=== PATIENT | female | born 1975 | race Caucasian/White ===

== ENCOUNTER 2018-10-22 01:40 | Emergency (ER) | payer OTHER ==
[~2018-10-22 01:40] MED LIST: CIP500 PO; CIPR-344 PO; ESCI20TA38 PO; ESCI5TAB10 PO; EST625 PO; GOLYTE PO; HYDR-317 PO; HYOS0.1224 SL; LEVO500T PO; LOR5/325 PO; NO RTN MEDS; OXYB10TA16 PO; PER PO; PHEN95TA44 PO; PRO25 PO; SULF-198 PO; [UNRECOGNIZED DRUG - OTHER]
--- NOTE | 2018-10-22 01:43 | ER Report ---
History and Physical Time Seen By MD: 01:42 HPI/ROS CHIEF COMPLAINT: "Urinary tract infection" HISTORY OF PRESENT ILLNESS: Patient is a 43-year-old female with past medical history for anxiety and history of urinary tract infection in the past. Presents with a few hours worth of increased urinary frequency, burning with urination suprapubic abdominal pain. She denies fevers or chills she denies nausea vomiting or diarrhea. She denies any vaginal discharge. She denies . Patient denies any flank pain. Allergies: Coded Allergies: metoclopramide (Verified Allergy, Severe, NERVOUSNESS, 10/22/18) levofloxacin (Verified Allergy, Unknown, 10/22/18) 'FELT CRAZY' sulfamethoxazole (Verified Allergy, Unknown, 10/22/18) 'FELT CRAZY' trimethoprim (Verified Allergy, Unknown, 10/22/18) 'FELT CRAZY' Home Meds Active Scripts Phenazopyridine Hcl (PHENAZOPYRIDINE HCL) 200 Mg Tablet, 200 MG PO TID, #6 TAB 0 Refills Prov:YAMEL BARRON MD 10/22/18 Cephalexin (KEFLEX) 500 Mg Capsule, 500 MG PO Q6H, #20 CAP 0 Refills TAKE ONE CAPSULE BY MOUTH EVERY SIX HOURS Prov:YAMEL BARRON MD 10/22/18 Reported Medications Escitalopram Oxalate (LEXAPRO) 20 Mg Tablet, 20 MG PO QDAY, TAB 09/21/17 Past Medical/Surgical History History of anxiety, history of UTIs. Hx Smoking: No Smoking Status: Never Smoker Exposure to Second Hand Smoke?: No Hx Substance Use Disorder: No Hx Alcohol Use: No Constitutional Vital Sign - Last 24 Hours 10/22/18 01:44 Temp 97.8 Pulse 56 Resp 17 B/P (MAP) 151/91 Pulse Ox 96 O2 Delivery Room Air Physical Exam General appearance: Alert no distress. Resp: Normal respiratory rate no increased work of breathing Abdomen: Soft nontender positive suprapubic bladder tenderness, negative for flank pain. Medical Decision Making Data Points Laboratory Hematology Test 10/22/18 01:44 Urine Color [place] Urine Clarity Slightly-cloudy Urine pH 6.0 pH (4.8-9.5) Urine Specific [place] 1.002 Urine Protein 30 mg/dL (NEGATIVE) Urine Glucose (UA) Negative mg/dL (NEGATIVE) Urine Ketones Negative mg/dL (NEGATIVE) Urine Blood Large (NEGATIVE) Urine Nitrite Positive (NEGATIVE) Urine Bilirubin Negative (NEGATIVE) Urine Urobilinogen Negative mg/dL (0.2-1.9) Urine Leukocyte Esterase Moderate (NEGATIVE) Urine RBC 5 /HPF (0-2/HPF) Urine WBC 64 /HPF (0-5/HPF) Urine WBC Clumps Mod /HPF Urine Squamous Epithelial Cells Few /LPF (</=FEW) Urine Transitional Epithelial Cells Few /LPF (NONE-FEW) Urine Bacteria Few /HPF (NONE-FEW) Urine Mucus None /HPF (NONE-FEW) Chemistry Test 10/22/18 01:44 Urine Color [place]raine Urine Clarity Slightly-cloudy Urine pH 6.0 pH (4.8-9.5) Urine Specific [place] 1.002 Urine Protein 30 mg/dL (NEGATIVE) Urine Glucose (UA) Negative mg/dL (NEGATIVE) Urine Ketones Negative mg/dL (NEGATIVE) Urine Blood Large (NEGATIVE) Urine Nitrite Positive (NEGATIVE) Urine Bilirubin Negative (NEGATIVE) Urine Urobilinogen Negative mg/dL (0.2-1.9) Urine Leukocyte Esterase Moderate (NEGATIVE) Urine RBC 5 /HPF (0-2/HPF) Urine WBC 64 /HPF (0-5/HPF) Urine WBC Clumps Mod /HPF Urine Squamous Epithelial Cells Few /LPF (</=FEW) Urine Transitional Epithelial Cells Few /LPF (NONE-FEW) Urine Bacteria Few /HPF (NONE-FEW) Urine Mucus None /HPF (NONE-FEW) Urinalysis Test 10/22/18 01:44 Urine Color [place]raine Urine Clarity Slightly-cloudy Urine pH 6.0 pH (4.8-9.5) Urine Specific [place] 1.002 Urine Protein 30 mg/dL (NEGATIVE) Urine Glucose (UA) Negative mg/dL (NEGATIVE) Urine Ketones Negative mg/dL (NEGATIVE) Urine Blood Large (NEGATIVE) Urine Nitrite Positive (NEGATIVE) Urine Bilirubin Negative (NEGATIVE) Urine Urobilinogen Negative mg/dL (0.2-1.9) Urine Leukocyte Esterase Moderate (NEGATIVE) Urine RBC 5 /HPF (0-2/HPF) Urine WBC 64 /HPF (0-5/HPF) Urine WBC Clumps Mod /HPF Urine Squamous Epithelial Cells Few /LPF (</=FEW) Urine Transitional Epithelial Cells Few /LPF (NONE-FEW) Urine Bacteria Few /HPF (NONE-FEW) Urine Mucus None /HPF (NONE-FEW) ED Course/Re-evaluation ED Course 10/22/2018 2:04:20 am patient called requesting IV for antibiotics". This is because patient has to travel for work at 6 AM tomorrow morning. I feel the patient requires an IV but I will compromise and give IM Rocephin to achieve a high therapeutic antibiotic dose. Decision to Disposition Date: Oct 22, 2018 Decision to Disposition Time: 02:26 Depart Departure Latest Vital Signs Vital Signs Date Time Temp Pulse Resp B/P (MAP) Pulse Ox O2 Delivery O2 Flow Rate FiO2 10/22/18 01:44 97.8 56 17 151/91 96 Room Air Impression: Primary Impression: Urinary tract infection Condition: Improved Disposition: HOME OR SELF-CARE Referrals: MAYELA BHATT DO (PCP) New Scripts Phenazopyridine Hcl (PHENAZOPYRIDINE HCL) 200 Mg Tablet 200 MG PO TID, #6 TAB 0 Refills Prov: YAMEL BARRON MD 10/22/18 Cephalexin (KEFLEX) 500 Mg Capsule 500 MG PO Q6H, #20 CAP 0 Refills TAKE ONE CAPSULE BY MOUTH EVERY SIX HOURS Prov: YAMEL BARRON MD 10/22/18 Patient Instructions: Urinary Tract Infection in Women (ED) Additional Instructions: Lortab: 1 tablet by mouth every 4-6 hours as needed for severe bladder spasms and pain. Pyridium: 200 mg, one tablet by mouth every 8 hours as needed for bladder pain. If you develop fever or worsening symptoms she should return to the emergency department for reevaluation. Problem Qualifiers Primary Impression: Urinary tract infection Urinary tract infection type: acute cystitis Hematuria presence: without hematuria Qualified Codes: N30.00 - Acute cystitis without hematuria YAMEL BARRON MD Oct 22, 2018 01:43
[2018-10-22 01:44] VITALS: BP 151/91
[2018-10-22] MEDS ORDERED: PHENAZOPYRIDINE 200 MG TAB PO ONE (02:00)
[2018-10-22] MEDS ORDERED: cefTRIAXone 1 GM VIAL IM ONE (02:00)
[2018-10-22] MEDS ORDERED: PHENAZOPYRIDINE 200 MG TAB TH 2 TAB/BOTTLE PO ONE (02:00)
[2018-10-22] MEDS ORDERED: LIDOCAINE 1% MDV 200 MG/20 ML INJ ONE (02:00)
[2018-10-22] MEDS ORDERED: ACET/HYDROC 5/325MG TH ER ONLY 2 TAB/BOTTLE PO ONE (02:00)
[2018-10-22] MEDS ORDERED: IBUPROFEN 600 MG TAB PO ONE (02:00)
[2018-10-22] MEDS ORDERED: PHEN200T32 PO (02:06)
[2018-10-22] MEDS ORDERED: CEPH-13 PO (02:06)
== END 2018-10-22 02:21 | disposition home or self-care (01) ==
LOC: ER 01:44
DX: N30.00 Acute cystitis without hematuria (principal)
CPT/HCPCS: 81001; 87088; 96372; 99283; J0696; J2001; 87077; 87186

== ENCOUNTER 2019-03-04 19:19 | Emergency (ER) | payer OTHER ==
[~2019-03-04 19:19] MED LIST changes: +CEPH-13 PO; +PHEN200T32 PO
[2019-03-04 19:24] VITALS: BP 129/78
--- NOTE | 2019-03-04 19:30 | ER Report ---
History and Physical Time Seen By MD: 19:30 Hx. of Stated Complaint: PATIENT SUBBED TOE ON wednesday, IT WAS BLACK, THEY PUNCTURE TOE NAIL WITH NEED, IT DRAINED AND NOW HER TOE IS REALLY REDDENED AT BASE OF TOE NAIL, SWOLLEN, PAIN. HPI/ROS CHIEF COMPLAINT: Right great toe swelling and pain HISTORY OF PRESENT ILLNESS: 43-year-old female patient presents to emergency room with complaint of right great toe swelling and pain. Patient states she stopped her toe on Wednesday. She states that since then it's become very swollen. She states that they did put a hole into the toenail and had some purulent drainage. She states that the toe has continued to get red, irritated. She states she does have pain with any type of ambulation or movement. She denies any fevers, chills. Patient states she is not taking any medication for this. Allergies: Coded Allergies: metoclopramide (Verified Allergy, Severe, NERVOUSNESS, 03/04/19) levofloxacin (Verified Allergy, Unknown, 03/04/19) 'FELT CRAZY' sulfamethoxazole (Verified Allergy, Unknown, 03/04/19) 'FELT CRAZY' trimethoprim (Verified Allergy, Unknown, 03/04/19) 'FELT CRAZY' Home Meds Active Scripts Ibuprofen (IBUPROFEN) 800 Mg Tablet, 1 TAB PO Q8H, #19 TAB Prov:ROSELIA SILVER [facility] 03/04/19 Cephalexin 500 Mg Tab (KEFLEX 500 MG TAB) 500 Mg Tablet, 500 MG PO Q6H, #26 TAB Prov:ROSELIA SILVER [facility] 03/04/19 Reported Medications Escitalopram Oxalate (LEXAPRO) 20 Mg Tablet, 20 MG PO QDAY, TAB 09/21/17 Discontinued Scripts Phenazopyridine Hcl (PHENAZOPYRIDINE HCL) 200 Mg Tablet, 200 MG PO TID, #6 TAB 0 Refills Prov:YAMEL BARRON MD 10/22/18 Cephalexin (KEFLEX) 500 Mg Capsule, 500 MG PO Q6H, #20 CAP 0 Refills TAKE ONE CAPSULE BY MOUTH EVERY SIX HOURS Prov:YAMEL BARRON MD 10/22/18 Past Medical/Surgical History Patient has a past medical history of UTI, bilateral ovarian cyst. Patient has a surgical history of hysterectomy. Reviewed Nurses Notes: Yes Hx Smoking: No Smoking Status: Never Smoker Exposure to Second Hand Smoke?: No Hx Substance Use Disorder: No Hx Alcohol Use: No Constitutional Vital Sign - Last 24 Hours 03/04/19 19:24 Temp 97.9 Pulse 77 Resp 16 B/P (MAP) 129/78 Pulse Ox 93 O2 Delivery Room Air Physical Exam General appearance: Alert no distress. Respiratory: Chest is non tender, lungs are clear to auscultation. Cardiac: Regular rate and rhythm. Skin: Skin is erythematous, has what appears to be purulent drainage under the skin at the proximal end of the toenail. Is very tender to touch. DIFFERENTIAL DIAGNOSIS: After history and physical exam differential diagnosis was considered for abscess, infection, paronychia Medical Decision Making ED Course/Re-evaluation ED Course Patient was admitted on exam room, history and physical were obtained. Differential diagnoses were considered. On examination patient did have redness and swelling around the proximal end of the nail bed. Very tender to touch. The right great toe was anesthetized, clean. The patient stated that she was adequately anesthetized I did make a small incision using 11 blade scalpel. I was able to express out a significant amount of serous fluid. Patient was then dressed with bacitracin, Telfa, gauze wrap and Coban. Patient tolerated proc edure well. We will go ahead and discharge home at this time. We will start her on Keflex for infection, we will also do ibuprofen 800 mg as needed for pain. Patient is to limit her activity by pain. She is to get plenty of rest. She is to take medication as prescribed. Patient verbalized understanding and agreement with plan. Decision to Disposition Date: March 04, 2019 Decision to Disposition Time: 20:02 Depart Departure Latest Vital Signs Vital Signs Date Time Temp Pulse Resp B/P (MAP) Pulse Ox O2 Delivery O2 Flow Rate FiO2 03/04/19 19:24 97.9 77 16 129/78 93 Room Air Impression: Primary Impression: Paronychia Condition: Improved Disposition: HOME OR SELF-CARE Referrals: MAYELA BHATT DO (PCP) New Scripts Ibuprofen (IBUPROFEN) 800 Mg Tablet 1 TAB PO Q8H, #19 TAB Prov: ROSELIA SILVER 03/04/19 Cephalexin 500 Mg Tab (KEFLEX 500 MG TAB) 500 Mg Tablet 500 MG PO Q6H, #26 TAB Prov: ROSELIA SILVER 03/04/19 Patient Instructions: Paronychia (ED) Additional Instructions: Keep toe clean. Keep wound covered. Limit activity by pain. Take Ibuprofen as needed for pain. Follow up with your primary care provider in the next week. Return to the ER if condition worsens. ROSELIA SILVER March 04, 2019 19:30
[2019-03-04] MEDS ORDERED: CEPH500T7 PO (20:03)
[2019-03-04] MEDS ORDERED: IBUP800T37 PO (20:03)
[2019-03-04] MEDS ORDERED: CEPHALEXIN 500 MG CAP TH 2 CAP/BOTTLE PO ONE (20:05)
[2019-03-04] MEDS ORDERED: IBUPROFEN 800 MG TAB PO ONE (20:05)
== END 2019-03-04 20:24 | disposition home or self-care (01) ==
LOC: ER 19:31
DX: L03.031 Cellulitis of right toe (principal)
CPT/HCPCS: 99283